=== PATIENT | male | born 1995 | race Caucasian/White ===

== ENCOUNTER 2016-09-21 12:28 | Emergency (ER) | payer OTHER ==
--- NOTE | 2016-09-21 12:56 | UC ---
Cardiac HPI - HPI Summary HPI Summary: near syncope at work last pm. Was sent home for this after working only 2 hrs or so. Pt states he has had this since age 13. Has hx Holter monior in past. States his father has hx early onset CAD, age 28, father is still alive. Pt denies calf pain or SOB. States + fam hx of blood clots on his mother's side. 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 States his last injection was 09/04/16, is supposed to be weekly, but "he forgot". - History of Current Complaint Stated Complaint: chest pain Time Seen by Provider: 09/21/16 12:53 Hx Obtained From: Patient, Family/[employer] - female SO Onset/Duration: Gradual Onset, Lasting Days, Still Present Timing: Constant Initial Severity: Moderate Current Severity: Moderate Pain Intensity: 5 Chest Pain Location: Mid Sternal Character: Pressure/Squeezing Aggravating: Nothing Alleviating: Nothing Associated Signs & Symptoms: Positive: Chest Pain, Vision Changes, Weakness, Dizziness - Risk Factors Pulmonary Embolism Risk Factors: Previous PE - family hx PE per pt Cardiac Risk Factors: Negative - Allergy/Home Medications Allergies/Adverse Reactions: Allergies Allergy/AdvReac Type Severity Reaction Status Date / Time Codeine Allergy Severe Hives Verified 09/21/16 12:46 Penicillin G Allergy Severe Hives Verified 09/21/16 12:46 Hydrocodone Allergy Intermediate Hives Verified 09/21/16 12:46 Morphine Allergy Anaphylatic Verified 09/21/16 12:46 Shock Penicillins Allergy Hives Verified 09/21/16 12:46 PMH/Surg Hx/FS Hx/Imm Hx Previously Healthy: No - concussion, 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 Neurological History Of: Reports: Migraine Psychological History Of: Reports: Anxiety - Surgical History Surgical History: Yes Surgery Procedure, Year, and Place: laparoscopic left knee; wisdom teeth; breast reduction bilat - Family History Known Family History: Positive: Cardiac Disease, Hypertension, Diabetes, Other - PE - Social History Occupation: Employed Full-time Lives: With Family Alcohol Use: None Substance Use Type: None Smoking Status (MU): Never Smoked Tobacco - Immunization History Most Recent Influenza Vaccination: YESTERDAY, 03/16/14 Vaccination Up to Date: Yes Review of Systems Constitutional: Negative Eyes: Other - vision went "starry" Cardiovascular: Chest Pain Neurological: Headache All Other Systems Reviewed And Are Negative: Yes Physical Exam Triage Information Reviewed: Yes Appearance: Well-Nourished, Ill-Appearing, Pain Distress Vital Signs: elevated BP noted Vital Signs Reviewed: Yes Eyes: Positive: Conjunctiva Clear ENT: Positive: Hearing grossly normal. Negative: Muffled/hoarse voice Neck: Positive: Supple, Nontender, No Lymphadenopathy Respiratory: Positive: Lungs clear, Normal breath sounds, No respiratory distress Cardiovascular: Positive: RRR, No Murmur, Pulses Normal, Brisk Capillary Refill Abdomen Description: Positive: Nontender, Soft Bowel Sounds: Positive: Present Musculoskeletal: Positive: Strength Intact, ROM Intact Neurological: Positive: Alert, Muscle Tone Normal Psychological Exam: Normal Skin Exam: Normal Skin: Positive: Other - pt has chest hair and facial hair - Assessment/Plan Course Of Treatment: EKG SR, nl AVIVCT, nl axis, nl QTC, no acute changes, no prior to compare. - Differential Diagnoses - Chest Pain Differential Diagnosis/HQI/PQRI: ACS, Chest Wall, Lower Respiratory Infection, Pulmonary Embolism - Clinical Impression Provider Diagnoses: chest pain - Physician Notifications Discussed Patient Care With: Pt will go by private car to [facility] with spouse driving Time Discussed With Above Provider: 13:45 - spoke with Fatemeh Rodriguez NP Instructed by Provider To: MD Will See In ED Discharge - Discharge Plan Condition: Stable Disposition: AGAINST MEDICAL ADVICE Forms: *Work Release Referrals: Ariela Gaston MD [Primary Care Provider] -
[2016-09-21 13:43] VITALS: BP 129/74
== END 2016-09-21 13:43 | disposition left against medical advice (07) ==
LOC: EDSEX → UCCORT 12:28
DX: R07.9 Chest pain, unspecified (principal); R55 Syncope and collapse; Z87.890 Personal history of sex reassignment; Z88.5 Allergy status to narcotic agent; Z88.0 Allergy status to penicillin
CPT/HCPCS: 93005; 99213; G0463